=== PATIENT | female | born 1950 | race Caucasian/White ===

== ENCOUNTER 2025-05-15 15:53 | Emergency (ER) | payer MEDICARE ==
[~2025-05-15] VITALS: Ht 152.4 cm; Wt 59.0 kg
[~2025-05-15 15:53] MED LIST: ASPI-1005 PO; BENZ150C8 PO; BUDE0.5A3 IH; FLUC100T12 PO; GUAIFDM PO; IPRA3AMP24 IH; LEVO750T68 PO; LOSA100T59 PO; METO25TA6 PO; MULT-1203 PO; PANT20TA18 PO
--- NOTE | 2025-05-15 16:13 | ERN ---
ED Note History of Present Illness Stated Complaint: FALL Chief Complaint: Mechanical Fall Time Seen by MD: 16:02 Dictation: PATIENT IS A 74-YEAR-OLD FEMALE HERE WITH LEFT PROXIMAL HUMERUS AND ELBOW PAIN STATUS POST SAME LEVEL TRIP FALL. SHE IS ALSO COMPLAINING OF MILD PELVIC PAIN. NO SHORTENING OR ROTATION OF LOWER EXTREMITIES NO BLOOD THINNERS NO HEAD INJURY NO SPINE PAIN AND NO TRAUMA ALERT CRITERIA. SHE ALREADY HAS A SPLINT TO HER LEFT WRIST FROM A PRIOR FALL THREE WEEKS AGO WITH A KNOWN FRACTURE. Allergies: Coded Allergies: codeine (Unverified Allergy, Unknown, 10/29/24) Home Meds Active Scripts Budesonide (Budesonide) 0.5 Mg/2 Ml Ampul.neb, 0.5 MG IH BIDRESP, #1 Prov:ABRAHAM JONES MD 11/01/24 Levofloxacin (Levaquin 750Mg Tabs) 750 Mg Tablet, 750 MG PO DAILY for 7 Days, #7 TAB Prov:ABRAHAM JONES MD 11/01/24 Ipratropium/Albuterol Sulfate (Iprat-Albut 0.5-3(2.5) mg/3 ml) 0.5 Mg-3 Mg (2.5 Mg Base)/3 Ml Ampul.neb, 1 UDVIAL IH [id number], #1 Prov:ABRAHAM JONES MD 11/01/24 Guaifenesin/Dextromethorphan (Guaifenesin-Dm 200-20 mg/10 ml) 100 Mg-10 Mg/5 Ml Liquid, 10 ML PO Q4H PRN for COUGH, #1 Prov:ABRAHAM JONES MD 11/01/24 Fluconazole (Fluconazole) 100 Mg Tablet, 100 MG PO DAILY for 10 Days, #10 TAB Prov:ABRAHAM JONES MD 11/01/24 Aspirin (ASPIRIN 81MG CHEW TAB) 81 Mg Tab.chew, 81 MG PO DAILY for 30 Days, #30 TAB.CHEW Prov:ABRAHAM JONES MD 11/01/24 Reported Medications Benzonatate (Benzonatate) 150 Mg Capsule, 1 CAP PO TID for cough for 7 Days, #21 CAP 0 Refills 10/30/24 Multivitamin (Multi Vitamin Daily) 1 Each Tablet, 1 TAB PO DAILY for 30 Days, #30 TAB 0 Refills 10/30/24 Losartan Potassium (Losartan Potassium) 100 Mg Tablet, 1 TAB PO DAILYDINNER for 30 Days, #30 TAB 0 Refills 10/30/24 Pantoprazole Sodium (Pantoprazole Sodium) 20 Mg Tablet.dr, 1 TAB PO DAILY for 30 Days, #30 TAB 0 Refills 10/30/24 Metoprolol Tartrate (Metoprolol Tartrate) 25 Mg Tablet, 1 TAB PO DAILY for 30 Days, #60 TAB 0 Refills 10/30/24 Past Medical History Past Medical History: Asthma, High Cholesterol, Hypertension Surgical History: Other Surgical History Other: R HIP REPLACEMENT, RIGHT LEG PAIN History: Not Applicable RN Note Reviewed/Agreed w/PFSH: Yes Review of System Dictation CONSTITUTIONAL: NEGATIVE EXCEPT FOR HPI HEAD/FACE: NEGATIVE EXCEPT FOR HPI EENT: NEGATIVE EXCEPT FOR HPI RESPIRATORY: NEGATIVE EXCEPT FOR HPI GASTROINTESTINAL/ABDOMINAL: NEGATIVE EXCEPT FOR HPI GENITOURINARY: NEGATIVE EXCEPT FOR HPI MUSCULOSKELETAL: NEGATIVE EXCEPT FOR HPI LEFT PROXIMAL HUMERUS AND PELVIC PAIN. INTEGUMENTARY: NEGATIVE EXCEPT FOR HPI NEUROLOGICAL/PSYCH: NEGATIVE EXCEPT FOR HPI HEMATOLOGIC/LYMPHATIC: NEGATIVE EXCEPT FOR HPI ALL SYSTEMS NEGATIVE, EXCEPT NOTED ABOVE. 13 POINT REVIEW OF SYSTEMS ASSESSED AND ALL NEGATIVE EXCEPT FOR ABOVE. Initial Vital Sign VS Vital Signs Date Time Temp Pulse Resp B/P (MAP) Pulse Ox O2 Delivery O2 Flow Rate FiO2 05/15/25 15:54 98.1 100 18 154/61 98 Room Air 0 Physical Exam Dictation VITAL SIGNS REVIEWED GENERAL APPEARANCE: ALERT, ORIENTED X 3, MODERATE ACUTE DISTRESS, WELL DEVEL OPED, NOURISHED. HEAD AND FACE: NON-TRAUMATIC. NO LUND OR RACCOON SIGN NO OBVIOUS HEAD TRAUMA EYES: PERRL, PINK CONJUNCTIVAS, EYELID NO TRAUMA, ANTERIOR CHAMBER WITH ARCUS SENILIS. EARS: PINNAS INTACT AND NO SIGNS OF TRAUMA OR ERYTHEMA EAR CANALS CLEAR AND NO DISCHARGE TM NO ERYTHEMA NOSE: NO DISCHARGE, NO BLEEDING. OROPHARYNX: MOUTH NORMAL, TONGUE PINK, PHARYNX CLEAR,NO ERYTHEMA, TONSILS NO EXUDATES, NO ABSCESSES NOTED, MUCOUS MEMBRANE MOIST NECK: SUPPLE, NON-TENDER, NO THYROMEGALY, NO MASSES, NO JVD, NO BRUITS BREAST:DEFERRED CHEST:NO TENDERNESS, NO CREPITUS, NO PARADOXICAL MOVEMENT, NO RETRACTIONS LUNGS:CLEAR, WELL-VENTILATED, SYMMETRIC, NO RALES, NO WHEEZING, NO RHONCHI, NO STRIDOR, GOOD BREATH SOUNDS BILATERALLY HEART: REGULAR RATE, REGULAR RHYTHM, NO MURMUR, NO GALLOPS VASCULAR: NO PERIPHERAL EDEMA, ABDOMEN: SOFT, POSITIVE BOWEL SOUNDS, NONDISTENDED, NO GUARDING, NONTENDER, NO REBOUND, NO MASSES NO HEPATOMEGALY, NO SPLENOMEGALY, NO MOSS'S SIGN, NO HERNIAS. RECTAL: DEFERRED GENITAL: DEFERRED NEUROLOGICAL: NORMAL SPEECH, MOTOR FUNCTION INTACT, SENSORY FUNCTION INTACT MUSCULOSKELETAL: NECK NONTENDER, FULL RANGE OF MOTION, BACK NONTENDER, FULL RANGE OF MOTION, EXTREMITIES: RIGHT LATERAL HIP PAIN WITHOUT SHORTENING OR ROTATION. RIGHT PROXIMAL HUMERUS PAIN WITH OBVIOUS DEFORMITY AND DECREASED RANGE OF MOTION. DISTAL NEUROVASCULAR INTACT TO LEFT HAND SKIN: COLOR PINK, DRY, NO TURGOR, NO RASH, NO LACERATIONS, NO ABRASIONS, NO CONTUSIONS. LYMPHATIC: DEFERRED Results (Laboratory/Radiology) Laboratory/Radiology PELVIC X-RAY DEMONSTRATES PROSTHETIC RIGHT HIP INTACT LEFT HUMERUS DEMONSTRATES DISPLACED HUMERAL HEAD FRACTURE Labs Reviewed?: Yes ED Course ED Course Orders Procedure Category Date Status Time Elbow Comp 3+Vws Lt RAD 05/15/25 Logged 16:09 Humerus 2+Vws Lt RAD 05/15/25 Taken 16:09 Pelvis 1-2vws RAD 05/15/25 Taken 16:09 Morphine 2mg Syg PHA 05/15/25 In Process (Morphine 2mg Syg) 16:30 Ondansetron 4mg Inj PHA 05/15/25 In Process (Zofran 4mg Inj) 16:30 Pharmacy PHA 05/15/25 In Process Communication 17:00 Shoulder Immobilizer NETTE 05/15/25 Transmitted 17:19 Current Medications Medications (Trade) Dose Ordered Sig/Romario Route PRN Reason Start Time Stop Time Status Last Admin Dose Admin Morphine Sulfate (morPHINE 2MG SYG) 2 mg ONCE IVP 05/15/25 16:30 05/15/25 20:30 05/15/25 17:19 Ondansetron HCl (zoFRAN 4MG INJ) 4 mg ONCE IVP 05/15/25 16:30 05/15/25 20:30 05/15/25 16:45 Pharmacy Profile Note (Pharmacy Communication) 1 each ONCE MISC 05/15/25 17:00 05/15/25 21:00 Vital Signs Date Time Temp Pulse Resp B/P (MAP) Pulse Ox O2 Delivery O2 Flow Rate FiO2 05/15/25 15:54 98.1 100 18 154/61 98 Room Air 0 1730/SPOKE WITH DR. JAY DEWEY SHE REVIEWED IMAGES. SHE SAID OKAY TO DISCHARGE PATIENT HOME WITH SHOULDER, IMMOBILIZER PAIN MANAGEMENT, FALL ON HER CLINIC TOMORROW. SHOULDER IMMOBILIZER PLACED BY TECH, DISTAL NEUROVASCULAR CMS INTACT TO RIGHT HAND POST PLACEMENT. PATIENT AND HER SISTER WERE MADE AWARE OF MY DISCUSSION WITH DR. DEWEY AND AGREED TO FOLLOW UP WITH HER. Medical Decision Making MDM MEDICAL DISCHARGE MAKING BASED ON X-RAYS OF PELVIC AND LEFT HUMERUS PELVIS X-RAY NEGATIVE PATIENT HAS A DISPLACED LEFT HUMERAL HEAD FRACTURE IMMOBILIZER PLACED PER ORTHOPEDIC SURGERY AND WE WILL HAVE HER FOLLOW UP WITH DR. DEWEY TOMORROW. HOME WITH TRAMADOL PER PATIENT'S REQUEST NEUROVASCULAR CMS INTACT TO LEFT HAND POST PLACEMENT DX & DISP Disposition: Discharge Departure Impression: Primary Impression: Fracture of humeral head, left, closed Additional Impressions: Pelvic contusion, Fall Condition: Stable Scripts Tramadol HCl/Acetaminophen (Tramadol-Acetaminophn 37.5-325) 37.5 Mg-325 Mg Tablet 1 EACH PO Q6HPRN PRN for MODERATE PAIN, #15 TAB 0 Refills Prov: MIKEY SHEARER NP 05/15/25 Additional Instructions: Follow-up with primary care provider in 1 to 2 days. Take medications as directed here in the emergency room. Okay to continue home medications unless otherwise discussed during your visit in the emergency room today. Return to your nearest emergency room if symptoms worsen or if there is no improvement. Call 911 if you need immediate assistance. Take Tylenol or Motrin [id number] as needed and if no contraindications are present. Increase oral hydration. A wound culture or urine culture was ordered here in the emergency room department please follow-up with primary care provider and advise them to get repeat ports from our facility. If you had any Armaan wrap/splints that were applied here, please do not remove them until you see your primary care or specialty. Shoulder immobilizer and no weight-bearing left arm until cleared by orthopedic surgeon, give her a call in the morning for follow up in her clinic. Cool compresses to shoulder pain three to 4 times a day. Careful ambulation while taking Ultracet. Referrals: SELF,REFERRAL (PCP) JAY DEWEY MD I have reviewed the case, and I agree with, Diagnosis and Plan MIKEY SHEARER NP May 15, 2025 16:13
[2025-05-15] MEDS: PHARMACY COMMUNICATION MISC SCH (17:24)
--- NOTE | 2025-05-15 17:28 | HMCIMG ---
EXAM: Pelvic radiograph 1 view HISTORY: Fall COMPARISON: None TECHNIQUE: AP view of the pelvis FINDINGS: Right hip hemiarthroplasty with no hardware loosening. Mild joint changes of the left hip. No hip fracture or dislocation. SI joints are intact. No pelvic fracture seen. Degenerative changes of the spine. Vascular calcifications. IMPRESSION: No fracture or dislocation /[place]
--- NOTE | 2025-05-15 17:30 | HMCIMG ---
EXAM: Left humerus radiograph 2 view HISTORY: Pain COMPARISON: None TECHNIQUE: AP and lateral views FINDINGS: Mild degenerative changes of the acromioclavicular joint. Question mild deformity of the humeral head on Y view. No gross dislocation. IMPRESSION: Question fracture through the humeral head. Suggest CT to further evaluate. /[place]
[2025-05-15] MEDS ORDERED: TRAM-543 PO (17:36)
[2025-05-15 18:40] VITALS: BP 147/59; PULSE 90; RESP 18; TEMP 98.1; O2SAT 98
== END 2025-05-15 18:59 | disposition home or self-care (01) ==
LOC: EDH 15:53
DX: S42.292A Other displaced fracture of upper end of left humerus, initial encounter for closed fracture (principal); S30.0XXA Contusion of lower back and pelvis, initial encounter; E78.00 Pure hypercholesterolemia, unspecified; I10 Essential (primary) hypertension; J45.909 Unspecified asthma, uncomplicated; Z79.82 Long term (current) use of aspirin; Z79.899 Other long term (current) drug therapy; Z88.5 Allergy status to narcotic agent; Z96.641 Presence of right artificial hip joint; W01.0XXA Fall on same level from slipping, tripping and stumbling without subsequent striking against object, initial encounter; Y93.89 Activity, other specified; Y92.89 Other specified places as the place of occurrence of the external cause; Y99.8 Other external cause status
CPT/HCPCS: 99284; 96374; 29105; 96375; 73060; 72170; 96376; J2270 ×2; J2405